=== PATIENT | female | born 1940 | race Hispanic/Latino ===

== ENCOUNTER 2023-11-27 11:00 | Emergency (ER) | payer OTHER ==
--- NOTE | 2023-11-27 11:25 | ER ---
Nurse's Notes [facility] Name: Alla Beltran Age: 83 yrs Sex: Female : 1940 Arrival Date: 11/27/2023 Time: 11:00 Bed 10 Private MD: Diagnosis: Dental caries, unspecified Presentation: 11/26 11:15 Chief complaint: Patient states: L ear pain started yesterday. Radiates into L eye and ll1 L jaw. No fever. Coronavirus screen: Client denies travel out of the [place] in the last 14 days. At this time, the client does not indicate any symptoms associated with coronavirus-19. Ebola Screen: Patient denies travel to an Ebola-affected area in the 21 days before illness onset. Initial Sepsis Screen: Does the patient meet any 2 criteria? No. Patient's initial sepsis screen is negative. Does the patient have a suspected source of infection? No. Patient's initial sepsis screen is negative. Risk Assessment: Do you want to hurt yourself or someone else? Patient reports no desire to harm self or others. Onset of symptoms was November 26, 2023. 11:15 Method Of Arrival: Ambulatory ll1 11:15 Acuity: VINEET 3 ll1 Triage Assessment: 11:19 General: Appears uncomfortable, Behavior is calm, cooperative, appropriate for age. ll1 Pain: Complains of pain in L ear Pain radiates to left ear and L jaw Pain currently is 9 out of 10 on a pain scale. Quality of pain is described as aching. EENT: Ear canal L ear pain. Dental caries noted in L jaw L side of head pain. Reports pain in left ear. Historical: - Allergies: 11:13 No Known Allergies; ll1 - PMHx: 11:13 breast CA; ll1 - PSHx: 11:13 hernia repairs; back surgery; mastectomy; hysterectomy; ll1 - Immunization history:: Adult Immunizations up to date. - Infectious Disease History:: Denies. - Social history:: Smoking status: Patient denies any tobacco usage or history of. Vital Signs: 11:15 BP 186 / 77; Pulse 72; Resp 17; Temp 97.3; Pulse Ox 97% ; Weight 61.23 kg; Height 5 ft. ll1 0 in. ; Pain 9/10; 11:15 Body Mass Index 26.37 (61.23 kg, 152.4 cm) ll1 11:15 Pain Scale: Adult ll1 ED Course: 11:07 Patient arrived in ED. mg5 11:08 Arm band placed on. ll1 11:16 Triage completed. ll1 11:18 Lynne Yu PA-C is PHCP. sb4 11:18 Cayetano Coker MD is Attending Physician. sb4 11:23 Patient placed in an exam room, on a stretcher. ll1 11:24 Enrique Thomas DDS is Referral Physician. sb4 Administered Medications: No medications were administered Outcome: 11:24 Discharge ordered by . sb4 11:39 Patient left the ED. hb Signatures: Delmis Wyatt RN RN hb Jose Cesar RN RN ll1 Lynne Yu PA-C PA-C sb4 Ester Ulrich mg5
--- NOTE | 2023-11-27 11:25 | EDPHYS ---
Physician Documentation [facility] Name: Alla Beltran Age: 83 yrs Sex: Female : 1940 Arrival Date: 11/27/2023 Time: 11:00 Bed 10 Private MD: ED Physician Cayetano Coker HPI: 11/26 15:23 This 83 yrs old Female presents to ER via Ambulatory with complaints of dental sb4 pain. 15:23 The patient presents with pain. The problem is located in the lower left second molar sb4 and lower left first molar. Onset: The symptoms/episode began/occurred 2 day(s) ago. Duration: The symptoms are continuous. Modifying factors: The symptoms are alleviated by nothing, the symptoms are aggravated by chewing, talking. Associated signs and symptoms: Pertinent negatives: chills, fever, inability to eat. The patient has not experienced similar symptoms in the past. Historical: - Allergies: 11:13 No Known Allergies; ll1 - PMHx: 11:13 breast CA; ll1 - PSHx: 11:13 hernia repairs; back surgery; mastectomy; hysterectomy; ll1 - Immunization history:: Adult Immunizations up to date. - Infectious Disease History:: Denies. - Social history:: Smoking status: Patient denies any tobacco usage or history of. ROS: 15:23 Constitutional: Negative for fever, chills, and weight loss, sb4 15:23 ENT: Positive for dental pain, 15:23 All other systems are negative, Exam: 15:23 Constitutional: This is a well developed, well nourished patient who is awake, alert, sb4 and in no acute distress. Head/Face: Normocephalic, atraumatic. Eyes: Extra-ocular motions intact. Periorbital areas with no swelling, redness, or edema. 15:23 ENT: Dental exam: dental caries, gum swelling, specifically in the lower left second molar (#18) and lower left first molar (#19), 15:23 ENT: Mucous membranes moist. Skin: Warm, dry with normal turgor. Normal color with sb4 no rashes, no lesions, and no evidence of cellulitis. Vital Signs: 11:15 BP 186 / 77; Pulse 72; Resp 17; Temp 97.3; Pulse Ox 97% ; Weight 61.23 kg; Height 5 ft. ll1 0 in. ; Pain 9/10; 11:15 Body Mass Index 26.37 (61.23 kg, 152.4 cm) ll1 11:15 Pain Scale: Adult ll1 MDM: 11:18 Patient medically screened. sb4 15:25 Data reviewed: vital signs, nurses notes, and as a result, I will discharge patient. sb4 Counseling: I had a detailed discussion with the patient and/or guardian regarding the historical points, exam findings, and any diagnostic results supporting the discharge/admit diagnosis, the need for outpatient follow up, a dentist, to return to the emergency department if symptoms worsen or persist or if there are any questions or concerns that arise at home. Administered Medications: No medications were administered Disposition: 18:01 Co-signature as Attending Physician, Cayetano Coker MD I reviewed the patient's care rt provided by the Advanced Practice Provider and agree with the diagnosis and treatment plan. Disposition Summary: 11/27/23 11:24 Discharge Ordered Notes: Location: Home sb4 Problem: new sb4 Symptoms: are unchanged sb4 Condition: Stable sb4 Diagnosis - Dental caries, unspecified sb4 Followup: sb4 - With: Enrique Thomas DDS - When: As needed - Reason: Recheck today's complaints, Re-evaluation by your physician Discharge Instructions: - Discharge Summary Sheet sb4 - Dental Caries, Adult sb4 - Dental Pain, [id number] sb4 Forms: - Antibiotic Education sb4 - Patient Portal Instructions sb4 - Leadership Thank You Letter sb4 Prescriptions: - Amoxicillin 875 mg Oral Tablet - take 1 tablet ORAL route every 12 hours for 10 days; 20 tablet; Refills: 0, sb4 Product Selection Permitted Signatures: Jose Cesar, RN RN ll1 Lynne Yu PA-C PABrain sb4 Cayetano Coker MD MD rt
[2023-11-27 12:27] VITALS: BP 186/77; TEMP 97.3; O2SAT 97
== END 2023-11-27 11:39 | disposition home or self-care (01) ==
LOC: ER 11:00
DX: K02.9 Dental caries, unspecified (principal)
CPT/HCPCS: 99281